=== PATIENT | male | born 1990 | race Caucasian/White ===

== ENCOUNTER → 2023-10-29 06:16 | Day surgery (SDC) | payer BC, SELFPAY ==
[2023-10-29] VITALS (11 sets, daily range): BP systolic 103–132; BP diastolic 57–70; BMI 26.5
[2023-10-29] MEDS: TYLENOL 1000 MG PO (06:49)
[2023-10-29] MEDS: NORMOSOL-R 1000 IV (06:49)
[2023-10-29] MEDS: DILAUDID 0.25 MG IV ×2 (09:47→10:05)
== END | disposition home or self-care (01) ==
LOC: SDS 06:16
PROVIDERS: ATTENDING PHYSICIAN Surgery
DX: K40.20 Bilateral inguinal hernia, without obstruction or gangrene, not specified as recurrent (principal)
CPT/HCPCS: 49650; C1781

== ENCOUNTER → 2024-02-19 16:39 | Outpatient (REF) | payer BC, SELFPAY | LOC: RAD 16:39 | PROVIDERS: ATTENDING PHYSICIAN Urology; FAMILY PHYSICIAN Physician Assistant Medical | DX: N50.89 Other specified disorders of the male genital organs (principal); N50.811 Right testicular pain | CPT/HCPCS: 76870; 93976 ==